=== PATIENT | male | born 1935 | race Caucasian/White ===

== ENCOUNTER 2017-10-29 10:33 | Observation (INO) | payer MEDICARE, OTHER ==
[2017-10-29] VITALS (14 sets, daily range): BP systolic 125–190; BP diastolic 44–129
[~2017-10-29] VITALS: Ht 172.7 cm; Wt 117.0 kg
--- NOTE | ~2017-10-29 | H ---
[address] [address] HISTORY AND PHYSICAL Name: ALEKSANDRA ACEVEDO Room: [address] Arlet Liu#: [id number] Admission: 10/29/17 Attend Phys: Aleksandra Recinos MD, Discharge: 10/30/17 Date of : 39 Report #: [id number] THIS REPORT FOR: //name// Please refer to the History and Physical performed in the physician's office. By: [id number] Records Staff GRICEL /CARSON
[2017-10-29 11:22] LABS: HEMATOCRIT 42.7 % (42.0-52.0); HEMOGLOBIN 14.1 gm/dL (14.0-18.0); MCH 29.3 pg (26.0-34.0); MCHC 33.1 g/dL (28.0-37.0); MCV 88.5 fL (80.0-100.0); MPV 11.3 fl. (7.2-11.1); RBC 4.82 mil/uL (4.50-6.00); RDW-CV 16.9 % (10.5-14.5); WBC 6.7 thou/uL (4.0-11.0)
[2017-10-29 11:29] LABS: APTT 24.4 Seconds (25.0-31.3); INR 1.1; PROTIME 10.7 Seconds (9.20-11.50)
[2017-10-29 11:36] LABS: ANION GAP 8 mmol/L (7-16); BUN 29 mg/dL (7-18); CHLORIDE 102 mmol/L (98-107); CO2 25 mmol/L (21-32); CREATININE 1.4 mg/dL (0.6-1.3); GLUCOSE 235 mg/dL (70-99); POTASSIUM 5.2 mmol/L (3.5-5.1); SODIUM 135 mmol/L (136-145)
[2017-10-29 11:41] LABS: ALBUMIN 3.2 g/dL (3.4-5.0); ALKALINE PHOSPHATASE 66 U/L (46-116); CHOLESTEROL 118 mg/dL (<200); HDL CHOLESTEROL 53 mg/dL (>40); LDL CHOLESTEROL 50 mg/dL (<100); SGOT 20 U/L (15-37); SGPT 29 U/L (30-65); TC:HDL 2.2 Ratio (Not establshd); TOTAL BILIRUBIN 0.6 mg/dL (<0.1-1.0); TOTAL PROTEIN 7.1 g/dL (6.4-8.2); TRIGLYCERIDE 79 mg/dL (<150); VLDL 16 mg/dL (<40)
[2017-10-29 11:42] LABS: SERUM ASSESSMENT Clear
[2017-10-29] MEDS ORDERED: LIPITOR80 MG PO (12:09)
[2017-10-29] MEDS ORDERED: ASPIRIN325 PO (12:09)
[2017-10-29] MEDS ORDERED: ASPIR 8181 MG (12:09)
[2017-10-29] MEDS ORDERED: COREG6.25 MG PO (12:10)
[2017-10-29] MEDS ORDERED: VOLTAREN GEL 1100 G2 TOP (12:10)
[2017-10-29] MEDS ORDERED: LEXAPRO20 MG PO ×2 (12:10)
[2017-10-29] MEDS ORDERED: PLAVIX 75 MG TA75 M1 PO (12:10)
[2017-10-29] MEDS ORDERED: NEXIUM40 MG PO (12:11)
[2017-10-29] MEDS ORDERED: TRIGLIDE160 M1 PO (12:12)
[2017-10-29] MEDS ORDERED: NEURONTIN250 MG/5 M PO (12:13)
[2017-10-29] MEDS ORDERED: NOVOLOG100 UNIT/1 SUBQ (12:13)
[2017-10-29] MEDS ORDERED: IMDUR 60 MG TAB60 M1 PO (12:13)
[2017-10-29] MEDS ORDERED: PRINIVIL20 MG PO (12:13)
[2017-10-29] MEDS ORDERED: LEVEMIR SUBQ (12:13)
[2017-10-29] MEDS ORDERED: JANUVIA100 MG PO (12:14)
[2017-10-29] MEDS ORDERED: NITROGLYCERIN0.4 MG SUBLING (12:14)
[2017-10-29] MEDS ORDERED: FORTESTA60 GM TOP (12:15)
--- NOTE | 2017-10-29 18:44 | EKG ---
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1935 Requested By: Aleksandra Recinos Order Number: [id number] Brianda MD: Aleksandra Recinos Measurements Intervals [place] Rate: 51 P: 2 CO: 178 QRS: 3 QRSD: 152 T: 24 QT: 449 QTc: 414 Interpretive Statements Sinus rhythm Right bundle branch block Compared to ECG 09/08/2005 22:25:26 Right bundle-branch block now present Electronically Signed On 10-29-2017 18:44:33 CDT by Aleksandra Recinos [email or web address] <ELECTRONICALLY SIGNED> By: Aleksandra Recinos MD, [facility] 10/29/17 1844 1115 111 Aleksandra Recinos MD, FACC /EPI
[2017-10-30] VITALS: BP 149/68
[2017-10-30 04:00] VITALS: BP 133/76
[2017-10-30 05:50] LABS: HEMATOCRIT 41.5 % (42.0-52.0); HEMOGLOBIN 13.6 gm/dL (14.0-18.0); MCH 29.3 pg (26.0-34.0); MCHC 32.8 g/dL (28.0-37.0); MCV 89.5 fL (80.0-100.0); MPV 10.9 fl. (7.2-11.1); RBC 4.63 mil/uL (4.50-6.00); RDW-CV 16.7 % (10.5-14.5); WBC 7.2 thou/uL (4.0-11.0)
[2017-10-30 06:03] LABS: ALBUMIN 2.9 g/dL (3.4-5.0); CALCIUM 8.7 mg/dL (8.5-10.1); CREATININE 1.4 mg/dL (0.6-1.3); POTASSIUM 4.6 mmol/L (3.5-5.1); TOTAL BILIRUBIN 0.9 mg/dL (<0.1-1.0); TOTAL PROTEIN 6.3 g/dL (6.4-8.2)
[2017-10-30 08:00] VITALS: BP 133/76
[2017-10-30] MEDS ORDERED: BRILINTA90 MG PO (09:56)
[2017-10-30] MEDS ORDERED: ASPIR 8181 MG PO (09:57)
[2017-10-30 09:59] VITALS: BP 144/60
--- NOTE | 2017-10-30 10:37 | EKG ---
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
--- NOTE | 2017-10-30 10:38 | EKG ---
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
[2017-10-30 11:11] VITALS: BP 144/60
--- NOTE | 2017-10-30 12:57 | CARD ---
[address] [address] CARDIAC CATH REPORT Name: ALEKSANDRA ACEVEDO Room: [address] Arlet Liu#: [id number] Admission: 10/29/17 Attend Phys: Aleksandra Recinos MD, Discharge: 10/30/17 Date of : 39 Report #: [id number] THIS REPORT FOR: //name// APPROVED REPORT Study performed: 10/29/2017 14:11:59 Patient Details Patient Status: Out-Patient Room #: The patient is a 82 year-old male Event Personnel Aleksandra Recinos Office Clinician, Elicia Pederson RN Appliance Mechanic, Sunni Bartholomew Monitor, Jayne Irvin RTR Scrub Procedures Performed Art Access - L femoral artery* Left Heart Cath w/or w/o Coronaries [id number] [facility]I Place w/wo Plasty Single RCA 275116 Indication Unstable angina Risk Factors Hypercholesterolemia, Coronary Artery DiseaseHypertension Previous Procedures/Diagnoses Previous PCI Admission/Lab Medications/Medications given during procedure Aspirin, Platelet Aff. Inhib., Angiomax bolus and infusion Procedure Narrative The patient was brought electively to the Cardiac Catheterization Laboratory and was prepped and draped in a sterile manner. The left femoral was infiltrated with 2% Lidocaine subcutaneous anesthesia. A [place] 6 FR sheath was inserted into the left femoral artery. Coronary angiography was performed using coronary diagnostic catheters. The right coronary system was accessed and visualized with a 6fr JR 4 catheter. The left coronary system was accessed and visualized with a 6fr JL 4 catheter. The left ventricle was accessed and visualized with a 6fr Straight pigtail catheter. Left ventricular/Aortic Valve gradient assessed via catheter pullback. Left ventriculogram was performed in MIRANDA projection. Pre-demployment femoral angiogram was performed . Closure device was deployed with a [address] [place] [address] CARDIAC CATH REPORT Name: ALEKSANDRA ACEVEDO [address]#: [id number] Admission: 10/29/17 Attend Phys: Aleksandra Recinos MD, Discharge: 10/30/17 Date of : 39 Report #: [id number] 6 Fr Angioseal STS 6Fr. The patient tolerated the procedure well and there were no complications associated with the procedure. There was no hematoma. Intraoperative Conscious Sedation Sedation start time: 14:50 Case end Time: 15:50 Fluoro Time: 18.5 minutes Dose: DAP 263293 cGycm2 2941.5 mGy Contrast Type and Amount: Visipaque 230 ml Coronary Angiography The patient's coronary anatomy is right dominant. Diagnostic Cath Left Main 0% narrowing LAD 40% proximal and mid LAD stenosis Circumflex Nondominant circumflex with a widely patent first marginal stent Right Coronary Large dominant vessel with 70% tubular proximal narrowing and 80-90% distal stenosis before the bifurcation into the posterolateral and posterior descending branches Hemodynamics The aortic pressure is 171/70 mmHg with a mean of mmHg. The left ventricular pressure is 148/6 mmHg with a mean of mmHg. The left ventricular end diastolic pressure is 17 mmHg. There was no gradient across the aortic valve upon pullback. PCI Technique Lesion Anticoagulation was achieved with Angiomax. Percutaneous coronary intervention was performed on the distal right coronary artery. The lesion stenosis prior to intervention was 90% with BESSY 3 flow. A 6F JR 4.0 Guide Catheter was used to engage the ostium. A IG: ProwaterFlex 180CM Interventional Guidewire was used to cross the lesion. STENT DEPLOYMENT A drug-eluting stent Xience Alpine RX 2.25X08 was inserted and inflated up to 6.00atm for 11seconds. Additional Inflation: 8.00atm for 5seconds. Additional Inflation: 10.00atm for 11seconds. 12 MERA X 12 SECONDS POST STENT DEPLOYMENT BALLOON DILATION A Balloon catheter NC Trek RX 2.25 X 8 was inserted [place] [address] CARDIAC CATH REPORT Name: ALEKSANDRA ACEVEDO Room: [address] Arlet Liu#: [id number] Admission: 10/29/17 Attend Phys: Aleksandra Recinos MD, Discharge: 10/30/17 Date of : 39 Report #: [id number] to 15.00atm for 10seconds. Additional Inflation: 18.00atm for 14seconds. Additional Inflation: 20.00atm for 12seconds. Final angiography reveals 15 % stenosis with BESSY 3 flow. PCI Technique Lesion 2 Percutaneous Coronary Intervention was performed on the proximal right coronary artery. The lesion stenosis prior to intervention was 70% with BESSY 3 flow. A IG: ProwaterFlex 180CM Interventional Guidewire was used to cross the lesion. Balloon Dilation A Balloon catheter Trek RX 3.0 X 15 was inserted and inflated up to 16.00atm for 8seconds. Stent Deployment A drug-eluting stent Xience Alpine RX 3.5X15 was inserted and inflated up to 14.00atm for 13seconds. Additional Inflation: 16.00atm for 12seconds. Final angiography reveals 10 % stenosis with BESSY 3 flow. Conclusion #1 significant coronary artery disease characterized by the following: A 40% proximal and mid LAD narrowing B nondominant circumflex with widely patent first marginal stent C large dominant right coronary artery with 70% proximal stenosis with 80-90% distal narrowing before the posterior descending and posterolateral branches #2 moderate systemic systolic hypertension #3 successful percutaneous coronary intervention with deployment of drug-eluting stents at the sites of 70% tubular proximal and 80-90% focal distal right coronary stenosis with 10 and 15% residual narrowings following stent deployment and BESSY-3 flow to the distal vessel Recommendations Cardiac Risk Reduction Program [facility] [place] [address] CARDIAC CATH REPORT Name: ALEKSANDRA ACEVEDO Room: [address] Arlet Liu#: [id number] Admission: 10/29/17 Attend Phys: Aleksandra Recinos MD, Discharge: 10/30/17 Date of : 39 Report #: [id number] Medications Administered Aspirin (any) Ticagrelor Diagnostic Cath Approved by: Aleksandra Recinos MD Date/Time: 10/30/17 at 1255 hrs. <ELECTRONICALLY SIGNED> By: Aleksandra Recinos MD, FACC 10/30/17 1256 1256 1256Jolidia Recinos MD, FACC /INF
--- NOTE | 2017-10-31 11:25 | D ---
[address] [address] DISCHARGE SUMMARY Name: ACEVEDOALEKSANDRA Cooley Room: [address] Arlet Liu#: [id number] Admission: 10/29/17 Attend Phys: Aleksandra Recinos MD, Discharge: 10/30/17 Date of : 39 Report #: [id number] THIS REPORT FOR: //name// CC: Aleksandra Medina DATE OF SERVICE: 10/30/2017 FINAL DISCHARGE DIAGNOSES: 1. Unstable angina. 2. Coronary artery disease, status post percutaneous coronary intervention to the right coronary artery. 3. Remote percutaneous coronary intervention to the circumflex. 4. Hypertension. 5. Hyperlipoproteinemia. 6. History of transient ischemic attack. PROCEDURES: 10/29/2017 -- left heart catheterization, selective coronary arteriography and percutaneous coronary intervention to the right coronary artery with deployment of drug-eluting stent at the site of 70% proximal and 80-90% distal right coronary stenosis. The patient is a very pleasant and active 82-year-old male with a history of coronary artery disease status post remote stenting of chronic total occlusion of the circumflex approximately 6 years ago. Recently, he has noted recrudescence of chest pain suggesting angina following an unstable course. In that context, Dr. Mi recommend catheterization. There are risk factors including hypertension, hyperlipoproteinemia and weight excess. He has a history of a TIA. In this setting, he underwent cardiac catheterization on 10/29/2017, which revealed widely patent stent in the first marginal branch of the circumflex, 40% proximal and mid LAD narrowings, and 70% proximal with 80-90% distal right coronary stenosis. I deployed one drug-eluting stent in the distal right coronary artery with 10-20% residual narrowing and 1 drug-eluting stent in the proximal right coronary artery with 10% residual narrowing and BESSY 3 flow of the distal vessel. He did well post-procedurally with good hemostasis at the left femoral site of catheterization. Lab revealed sodium of 136, potassium 4.6, BUN 25 down from 29, creatinine stable at 1.4. Hemoglobin 13.6, white blood cell count 7200 with 140,000 platelets. Cholesterol 118, HDL 53, LDL 50, triglycerides 79 [place] [address] DISCHARGE SUMMARY Name: ALEKSANDRA ACEVEDO Room: [address] Alexa#: [id number] Admission: 10/29/17 Attend Phys: Aleksandra Recinos MD, Discharge: 10/30/17 Date of : 39 Report #: [id number] The patient was discharged to home in stable condition on 10/30/2017 on the following medications: Aspirin 81 mg daily, atorvastatin 80 mg daily, carvedilol 6.25 mg b.i.d., Lexapro 40 mg daily, Nexium 40 mg daily, fenofibrate 160 mg daily, gabapentin 800 mg q.i.d., sliding scale NovoLog insulin, Levemir at bedtime, isosorbide mononitrate 60 mg daily, lisinopril 20 mg daily, Januvia 100 mg daily, testosterone 40 mg daily, ticagrelor 90 mg b.i.d. with 180 mg loading dose, diclofenac one application daily p.r.n., and p.r.n. sublingual nitroglycerin. Schedule followup was arranged with my nurse practitioner, Lola Kraus, on 11/08/2017 at 1130 and myself at 11/26/2017 at 1420 at [facility]. The patient is discharged to home in stable condition on the aforementioned medications with followup as iterated above. <ELECTRONICALLY SIGNED> By: Aleksandra Recinos MD, FACC 10/31/17 1125 0931 1005Jolidia Recinos MD, FACC /nt
== END 2017-10-30 12:19 | disposition home or self-care (01) ==
LOC: M.CL 10:33 → M.TBA-CV 16:23 → M.2W 16:23
PROVIDERS: ADMIT Internal Medicine
DX: I25.110 Atherosclerotic heart disease of native coronary artery with unstable angina pectoris (principal); I10 Essential (primary) hypertension; E11.9 Type 2 diabetes mellitus without complications; M79.604 Pain in right leg; M79.605 Pain in left leg; E78.5 Hyperlipidemia, unspecified; Z98.890 Other specified postprocedural states; Z87.891 Personal history of nicotine dependence; Z86.73 Personal history of transient ischemic attack (TIA), and cerebral infarction without residual deficits; Z98.61 Coronary angioplasty status; Z72.89 Other problems related to lifestyle; Z79.4 Long term (current) use of insulin; Z90.89 Acquired absence of other organs